=== PATIENT | male | born 1955 | race Caucasian/White ===

== ENCOUNTER 2017-10-16 11:01 | Emergency (ER) | payer OTHER ==
[~2017-10-16] VITALS: Ht 175.3 cm; Wt 67.3 kg
[2017-10-16 12:01] LABS: HEMOGLOBIN 14.7 G/DL (12.5-16.6); MCH 34.8 PG (29.0-34.0); MCHC 36.8 G/DL (30.0-36.0); MCV 94.6 FL (86-99); PLATELET COUNT 273 K/uL (156-360); RBC DIS.WIDTH-CV 12.7 % (11.8-14.6); RBC DIS.WIDTH-SD 44.2 % (39-53); RED BLOOD COUNT 4.23 M/uL (4.00-5.50); WHITE BLOOD COUNT 19.1 K/uL (4.1-10.2)
[2017-10-16 12:13] LABS: ALBUMIN 4.5 g/dL (3.2-4.8)
[2017-10-16 12:14] LABS: CHLORIDE 94 mEq/L (99-109); POTASSIUM 4.3 mEq/L (3.7-5.4); SODIUM 129 mEq/L (136-147)
[2017-10-16 12:16] LABS: GLUCOSE 123 mg/dL (70-99); TOTAL PROTEIN 7.5 g/dL (6.4-8.3)
[2017-10-16 12:18] LABS: TOTAL BILIRUBIN 0.5 mg/dL (0.0-1.0)
[2017-10-16 12:19] LABS: ALKALINE PHOSPHATASE 52 IU/L (3-129)
[2017-10-16 12:20] LABS: CREATININE 0.8 mg/dL (0.6-1.3); GFR ESTIMATE (CALCULATED) > 59 mL/min/ (58.99-99999)
[2017-10-16 12:21] LABS: AST (GOT) 32 IU/L (2-34); UREA NITROGEN (BUN) 13 mg/dL (9-23)
[2017-10-16 12:22] LABS: ALT (GPT) 20 IU/L (3-49)
[2017-10-16 12:23] LABS: LIPASE 11 U/L (1.0-51.0)
[2017-10-16 12:35] LABS: APPEARANCE CLEAR ((CLEAR)); BILIRUBIN NEGATIVE; BLOOD NEGATIVE; COLOR YELLOW ((YELLOW)); GLUCOSE (STRIP) NEGATIVE; KETONES 20; LEUKOCYTES NEGATIVE; NITRITE NEGATIVE; PROTEIN (STRIP) NEGATIVE; SPECIFIC GRAVITY 1.019 (1.000-1.030); UCUL ADDED? NO; UROBILINOGEN 0.2 MG/DL (0.2-1.0)
[2017-10-16] MEDS ORDERED: PRILOSEC20 MG PO (14:48)
[2017-10-16 15:48] VITALS: BP 152/92
== END 2017-10-16 15:48 | disposition home or self-care (01) ==
LOC: EME 11:01
DX: K29.70 Gastritis, unspecified, without bleeding (principal); I10 Essential (primary) hypertension; F17.200 Nicotine dependence, unspecified, uncomplicated
CPT/HCPCS: 80053; 81003; 83690; 85027; 99281; 99285